=== PATIENT | female | born 1995 | race Hispanic/Latino ===

== ENCOUNTER 2018-11-04 13:33 | Emergency (ER) | payer OTHER ==
[~2018-11-04] VITALS: Ht 167.6 cm; Wt 73.5 kg
[~2018-11-04 13:33] MED LIST: BACTRIM DS TAB1 EACH PO
[2018-11-04] MEDS ORDERED: ONDANSETRON HCL INJ 2MG/ML 2ML 2 MG/ML VIAL IV ONE (14:24)
[2018-11-04] MEDS ORDERED: SODIUM CHLORIDE 0.9% 1000ML 1,000 ML IV SCH (14:30)
[2018-11-04 14:41] LABS: BASOPHILS % 0.4 % (0.0-1.0); EOSINOPHILS # (AUTO) 0.2 (0.0-0.4); EOSINOPHILS % 1.4 % (0.0-6.0); HEMATOCRIT 39.6 % (34.2-44.1); HEMOGLOBIN 12.5 g/dL (12.0-16.0); LYMPHOCYTES % 17.7 % (18.0-39.1); MEAN CORPUSCULAR HEMOGLOBIN 28.2 pg (28-32); MEAN CORPUSCULAR HGB CONC 31.6 g/dL (31-35); MEAN CORPUSCULAR VOLUME 89.2 fL (81-99); MONOCYTES % 8.9 % (4.4-11.3); NEUTROPHILS # (AUTO) 7.8 (2.1-6.9); NEUTROPHILS % 70.3 % (38.7-80.0); PLATELET COUNT 242 x10e3/uL (140-360); RED BLOOD COUNT 4.44 x10e6/uL (3.6-5.1); RED CELL DISTRIBUTION WIDTH 13.2 % (11.7-14.4)
[2018-11-04 14:44] LABS: CLARITY,URINE SL CLOUDY (CLEAR); COLOR,URINE YELLOW (YELLOW); LEUKOCYTE ESTERASE ,URINE 1+ (NEGATIVE); NITRITE,URINE NEGATIVE (NEGATIVE); PROTEIN,URINE DIPSTICK NEGATIVE (NEGATIVE); URINE UROBILINOGEN 0.2 mg/dL (0.2 - 1)
[2018-11-04 14:45] LABS: BILIRUBIN,URINE NEGATIVE (NEGATIVE); KETONES,URINE NEGATIVE (NEGATIVE)
[2018-11-04 14:52] LABS: ANION GAP 12.9 mmol/L (8-16); BLOOD UREA NITROGEN 8 mg/dL (7-26); BUN/CREATININE RATIO 12 (6-25); CARBON DIOXIDE 23 mmol/L (22-29); CHLORIDE 102 mmol/L (98-107); CREATININE, SERUM 0.68 mg/dL (0.57-1.11); EST GLOMERULAR FILTRATION RATE > 60 ML/MIN (60-); GLUCOSE 87 mg/dL (74-118); POTASSIUM 3.9 mmol/L (3.5-5.1); SODIUM 134 mmol/L (136-145)
[2018-11-04 15:07] LABS: AMORPHOUS SEDIMENT,URINE MODERATE (FEW); BACTERIA,URINE FEW /HPF; EPITHELIAL CELLS,URINE FEW /LPF; RBC,URINE 0-5 /HPF (0-5)
--- NOTE | 2018-11-04 18:02 | Diagnostic Imaging Report ---
TECHNIQUE: Transvaginal and transabdominal ultrasound imaging of the pelvis was performed. Transvaginal images were medically indicated to better evaluate the fetus. Color Doppler evaluation was utilized to supplement the evaluation. HISTORY: Rule out ectopic end portion COMPARISON: None available. DISCUSSION: UTERUS: Size: 7.5 x 5.3 x 6.5 cm. Cervix: Unremarkable. Endometrium: Intrauterine . [place] rump length: 2.6 cm Yolk sac: 0.3 cm Heart rate: 1 71 bpm OVARIES/ADNEXA: The right ovary measures 3 x 2.5 x 2.9 cm. A 1.9 x 1.3 x 1.8 cm cyst with peripheral enhancement, likely an evolving corpus luteum. Arterial and venous flow. The left ovary measures 2 x 1.7 x 1.4 cm. Arterial and venous flow. PELVIS: No free fluid. IMPRESSION: 1. Bilateral intrauterine , 9 weeks and 2 days by ultrasound criteria. 2. No ectopic identified, recommend correlation with serial beta-hCG levels. 3. Low probability of ovarian torsion. Signed by: Dr. Mj Foreman D.O., M.M.M. on 11/04/2018 5:59 PM
[2018-11-04 18:50] VITALS: BP 108/73
== END 2018-11-04 18:50 | disposition home or self-care (01) ==
LOC: ER 13:33
DX: O46.91 Antepartum hemorrhage, unspecified, first trimester (principal)
CPT/HCPCS: 36415; 76817; 80048; 81001; 84702; 85025; 86900; 93976; 99284; J2405; J7030

== ENCOUNTER 2019-12-10 12:20 | Emergency (ER) | payer OTHER ==
[~2019-12-10] VITALS: Ht 167.6 cm; Wt 73.5 kg
[2019-12-10] MEDS ORDERED: SODIUM CHLORIDE 0.9% 1000ML 1,000 ML IV STA (12:27)
[2019-12-10 13:47] LABS: BASOPHILS % 0.4 % (0.0-1.0); EOSINOPHILS # (AUTO) 0.1 (0.0-0.4); EOSINOPHILS % 1.1 % (0.0-6.0); HEMATOCRIT 36.1 % (34.2-44.1); HEMOGLOBIN 11.3 g/dL (12.0-16.0); LYMPHOCYTES # (AUTO) 0.7 (1.0-3.2); LYMPHOCYTES % 7.7 % (18.0-39.1); MEAN CORPUSCULAR HEMOGLOBIN 27.8 pg (28-32); MEAN CORPUSCULAR HGB CONC 31.3 g/dL (31-35); MEAN CORPUSCULAR VOLUME 88.9 fL (81-99); MONOCYTES % 10.7 % (4.4-11.3); NEUTROPHILS # (AUTO) 7.1 (2.1-6.9); NEUTROPHILS % 75.8 % (38.7-80.0); PLATELET COUNT 166 x10e3/uL (140-360); RED BLOOD COUNT 4.06 x10e6/uL (3.6-5.1); RED CELL DISTRIBUTION WIDTH 14.3 % (11.7-14.4)
--- NOTE | 2019-12-10 13:51 | Emergency Department Note ---
History of Present Illnes History of Present Illness Chief Complaint: Chest Pain History of Present Illness This is a 24 year old female PATIENT IN FROM HOME WITH COMPLAINTS OF SH ORTNESS OF BREATH AND CHEST PAIN SINCE YESTERDAY; DENIES FEVER, NAUSEA, OR VOMITING. LMP 05/28/2019, APPROX 6 MONTHS . PATIENT G - 2, P - 0, A - 1. PATIENT ALERT AND ORIENTED, RESP EVEN AND NONLABORED, APPEARS IN NO DISTRESS. 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 Any updates have been documented here. Past Medical History Recent Fever: No Clinical Suspicion of Infectio: No New/Unexplained Change in Ment: No Past Medical History: Asthma Past Surgical History: None Social History Smoking Cessation: Never Smoker Counseling Performed: No Alcohol Use: None Any Illegal Drug Use: No TB Exposure/Symptoms: No Physically hurt or threatened: No Other Last Tetanus: utd Any Pre-Existing Lines (PICC,: No Review of Systems Review of Systems Constitutional: Reports no symptoms EENTM: Reports no symptoms Cardiovascular: Reports as per HPI Respiratory: Reports as per HPI Gastrointestinal: Reports no symptoms Genitourinary: Reports no symptoms Musculoskeletal: Reports no symptoms Integumentary: Reports no symptoms Neurological: Reports no symptoms Psychological: Reports no symptoms Endocrine: Reports no symptoms Hematological/Lymphatic: Reports no symptoms Physical Exam Related Data Allergies: Coded Allergies: No Known Allergies (Unverified , 12/02/15) Triage Vital Signs Vital Signs Date Time Temp Pulse Resp B/P (MAP) Pulse Ox O2 Delivery O2 Flow Rate FiO2 12/10/19 12:24 98.6 116 20 133/77 99 Room Air Vital signs reviewed: Yes Physical Exam CONSTITUTIONAL Constitutional: Present well-developed, Present well-nourished HENT HENT: Present normocephalic, Present atraumatic, Present oropharynx clear/moist, Present nose normal HENT L/R: Present left ext ear normal, Present right ext ear normal EYES Eyes: Reports PERRL, Reports conjunctivae normal NECK Neck: Present ROM normal PULMONARY Pulmonary: Present effort normal, Present other (DECR BS'S BILAT BASES); Absent respiratory distress CARDIOVASCULAR Cardiovascular: Present regular rhythm, Present heart sounds normal, Present capillary refill normal, Present normal rate GASTROINTESTINAL Abdominal: Present soft, Present nontender, Present other (GRAVID WITH + MOVEMENT) GENITOURINARY Genitourinary: Present exam deferred SKIN Skin: Present warm, Present dry MUSCULOSKELETAL Musculoskeletal: Present ROM normal NEUROLOGICAL Neurological: Present alert, Present oriented x 3, Present no gross motor or sensory deficits PSYCHOLOGICAL Psychological: Present mood/affect normal, Present judgement normal Assessment & Plan Medical Decision Making MDM 27 WBD WITH PLEURITIC CP & SOB, TACHYCARDIC AND ELEV FHT'S 196 - CHECK CBC, CHEM, UA, CXR, D-DIMER - R/O ANEMIA, PNEUMONIA, PE - TRANSFER INITI[facility]MMEDIAT[facility] TO [facility]) AND WE WERE TOLD THEY ARE ON [facility]. I THEN CONTACTED DR CABALLERO AND EXPLAINED I HAVE NO MONITORING AND PT NEEDS TO BE IN L&D. SHE AGREES AND WILL HELP EXPEDITE TRANSFER. I SPOKE WITH TRANSFER CENTER AND DR CABALLERO WHO ACCEPTED PT FOR TRANSFER TO L&D AT [facility] Assessment & Plan Final Impression: (1) Chest pain (2) (3) Dyspnea (4) Tachycardia Depart Disposition: TRANS TO OTHER [facility] Last Vital Signs Date Time Temp Pulse Resp B/P (MAP) Pulse Ox O2 Delivery O2 Flow Rate FiO2 12/10/19 13:07 117 17 109/63 99 12/10/19 12:24 98.6 Room Air Home Meds No Active Prescriptions or Reported Meds Medications in the ED Sodium Chloride 1,000 ml @ 0 mls/hr Q0M STAT IV Last administered on 12/10/19at 13:09; Admin Dose 1,000 MLS/HR; Start 12/10/19 at 12:27; Stop 12/10/19 at 12:28; Status DC GUNNER JIMENEZ MD Dec 10, 2019 13:51
[2019-12-10 14:14] LABS: INR 0.91; PROTHROMBIN TIME 12.8 seconds (11.9-14.5)
[2019-12-10 14:21] LABS: ALANINE AMINOTRANSFERASE 23 IU/L (0-55); ALBUMIN 2.9 g/dL (3.5-5.0); ALBUMIN/GLOBULIN RATIO 0.7 (0.8-2.0); ALKALINE PHOSPHATASE 95 IU/L (40-150); ANION GAP 12.8 mmol/L (8-16); BLOOD UREA NITROGEN 5 mg/dL (7-26); BUN/CREATININE RATIO 9 (6-25); CARBON DIOXIDE 23 mmol/L (22-29); CHLORIDE 105 mmol/L (98-107); CREATININE, SERUM 0.55 mg/dL (0.57-1.11); EST GLOMERULAR FILTRATION RATE > 60 ML/MIN (60-); GLUCOSE 94 mg/dL (74-118); POTASSIUM 3.8 mmol/L (3.5-5.1); SODIUM 137 mmol/L (136-145)
--- NOTE | 2019-12-10 14:42 | Diagnostic Imaging Report ---
EXAMINATION: CHEST SINGLE (PORTABLE) INDICATION: W/ CP SOB COMPARISON: None FINDINGS: AP view TUBES and LINES: None. LUNGS/PLEURA: Lungs are well inflated. Very minimal increased hazy opacity which could be due to volume overload and edema secondary to . There is no evidence of pneumonia or pulmonary edema.. There is no pleural effusion or pneumothorax. HEART AND MEDIASTINUM: The cardiomediastinal silhouette is unremarkable. BONES AND SOFT TISSUES: No acute osseous lesion. Soft tissues are unremarkable. UPPER ABDOMEN: No free air under the diaphragm. IMPRESSION: Very minimal increased bilateral hazy opacities which could be due to volume overload and edema secondary to . No focal consolidation or evidence of pneumonia. Signed by: Jame Winters MD on 12/10/2019 2:38 PM
[2019-12-10 16:46] VITALS: BP 115/84
== END 2019-12-10 16:53 | disposition other institution (70) ==
LOC: ER 12:26
DX: O26.892 Other specified pregnancy related conditions, second trimester (principal); R07.9 Chest pain, unspecified; R06.00 Dyspnea, unspecified; R00.0 Tachycardia, unspecified
CPT/HCPCS: 36415; 71045; 80053; 83880; 85025; 85379; 85610; 85730; 93005; 99284; J7030

== ENCOUNTER 2023-11-27 21:31 | Emergency (ER) | payer OTHER ==
[~2023-11-27] VITALS: Ht 167.6 cm; Wt 73.5 kg
[2023-11-27 22:12] LABS: CLARITY,URINE CLEAR (CLEAR); COLOR,URINE YELLOW (YELLOW); LEUKOCYTE ESTERASE ,URINE NEGATIVE (NEGATIVE); NITRITE,URINE NEGATIVE (NEGATIVE); PH,URINE 5.5 (5 - 7)
[2023-11-27 22:13] LABS: BILIRUBIN,URINE NEGATIVE (NEGATIVE); GLUCOSE, URINE NEGATIVE (NEGATIVE); KETONES,URINE TRACE (NEGATIVE); PREGNANCY TEST, URINE NEGATIVE (NEGATIVE); PROTEIN,URINE DIPSTICK TRACE (NEGATIVE); URINE UROBILINOGEN 0.2 mg/dL (0.2 - 1)
[2023-11-27 22:32] LABS: EPITHELIAL CELLS,URINE MODERATE /LPF; RBC,URINE 0-5 /HPF (0-5); WBC,URINE (MAN) 0-5 /HPF (0-5)
[2023-11-27 22:33] LABS: BACTERIA,URINE MODERATE /HPF
[2023-11-27 22:35] LABS: BASOPHILS # (AUTO) 0.1 (0.0-0.1); BASOPHILS % 0.4 % (0.0-1.0); EOSINOPHILS # (AUTO) 0.3 (0.0-0.4); HEMATOCRIT 23.1 % (34.2-44.1); MEAN CORPUSCULAR HEMOGLOBIN 18.8 pg (28-32); MEAN CORPUSCULAR HGB CONC 27.3 g/dL (31-35); MONOCYTES % 7.3 % (4.4-11.3); NEUTROPHILS # (AUTO) 8.4 (2.1-6.9); NEUTROPHILS % 59.8 % (38.7-80.0); PLATELET COUNT 386 x10e3/uL (140-360); RED BLOOD COUNT 3.35 x10e6/uL (3.6-5.1); RED CELL DISTRIBUTION WIDTH 19.7 % (11.7-14.4); WHITE BLOOD COUNT 14.11 x10e3/uL (4.8-10.8)
[2023-11-27 22:36] LABS: HEMOGLOBIN 6.3 g/dL (12.0-16.0)
[2023-11-28] MEDS: SODIUM CHLORIDE 0.9% 250ML 250 ML IV ONE (02:31)
[2023-11-28 03:56] LABS: RBC MORPHOLOGY COMMENT ABNORMAL
[2023-11-28 03:57] LABS: ANISOCYTOSIS MODERATE; HYPOCHROMASIA MARKED; MICROCYTOSIS MODERATE; POIKILOCYTOSIS MODERATE; POLYCHROMASIA FEW; STOMATOCYTES MODERATE
[2023-11-28 03:58] LABS: OVALOCYTES FEW; PLATELET ESTIMATE ADEQUATE; PLATELET MORPHOLOGY COMMENT NORMAL
[2023-11-28] MEDS ORDERED: PROGESTERONE200 MG PO (04:11)
[2023-11-28 05:55] VITALS: PULSE 85; RESP 13; TEMP 98; O2SAT 100
== END 2023-11-28 07:12 | disposition home or self-care (01) ==
LOC: ER 21:35
DX: N93.8 Other specified abnormal uterine and vaginal bleeding (principal); D64.89 Other specified anemias
CPT/HCPCS: 36415; 76830; 76856; 81001; 81025; 85025; 86850; 86900; 86920; 99283; J7050; P9016